=== PATIENT | female | born 1975 | race Caucasian/White ===

== ENCOUNTER 2019-03-21 17:57 | Emergency (ER) | payer OTHER, MEDICARE, MEDICAID ==
[~2019-03-21] VITALS: Ht 170.2 cm; Wt 89.1 kg
[2019-03-21 18:12] VITALS: BP 137/84
[2019-03-21] MEDS ORDERED: ketorolac tromethamine 15mg/ml inj. IM ONE (19:35)
== END 2019-03-21 20:12 | disposition home or self-care (01) ==
LOC: ER 17:58
DX: M54.6 Pain in thoracic spine (principal); R30.0 Dysuria; V89.2XXA Person injured in unspecified motor-vehicle accident, traffic, initial encounter; Y93.89 Activity, other specified; Y92.488 Other paved roadways as the place of occurrence of the external cause; Y99.8 Other external cause status
CPT/HCPCS: 96372; 99283; J1885

== ENCOUNTER 2022-11-11 15:32 | Outpatient (CLI) | payer BC, MEDICAID | END 2022-11-11 23:59 | disposition home or self-care (01) | LOC: RAD 15:32 | PROVIDERS: ATTEND Student in an Organized Health Care Education/Training Program | DX: N83.202 Unspecified ovarian cyst, left side (principal) | CPT/HCPCS: 76830; 76856; 93976 ==